=== PATIENT | female | born 1965 | race Caucasian/White ===

== ENCOUNTER 2017-10-25 08:29 | Outpatient (CLI) | payer OTHER | END 2017-10-25 08:39 | disposition home or self-care (01) | LOC: MAMO-SONO 08:29 | DX: N60.11 Diffuse cystic mastopathy of right breast (principal); N60.12 Diffuse cystic mastopathy of left breast ==

== ENCOUNTER → 2017-10-25 12:11 | Outpatient (CLI) | payer OTHER | END | disposition home or self-care (01) | LOC: LAB 07:13 | DX: E67.3 Hypervitaminosis D (principal); Z12.11 Encounter for screening for malignant neoplasm of colon; E03.8 Other specified hypothyroidism; E11.69 Type 2 diabetes mellitus with other specified complication; E78.2 Mixed hyperlipidemia ==

== ENCOUNTER 2018-12-05 08:13 | Outpatient (CLI) | payer OTHER | END 2018-12-05 09:51 | disposition home or self-care (01) | LOC: LAB 08:13 | DX: E11.9 Type 2 diabetes mellitus without complications (principal); E78.2 Mixed hyperlipidemia; E03.8 Other specified hypothyroidism; Z12.11 Encounter for screening for malignant neoplasm of colon ==

== ENCOUNTER 2018-12-05 08:14 | Outpatient (CLI) | payer OTHER | END 2018-12-05 08:28 | disposition home or self-care (01) | LOC: MAMO-SONO 08:14 | DX: N63.11 Unspecified lump in the right breast, upper outer quadrant (principal); Z12.31 Encounter for screening mammogram for malignant neoplasm of breast ==

== ENCOUNTER 2020-06-03 09:02 | Outpatient (CLI) | payer OTHER | END 2020-06-03 09:19 | disposition home or self-care (01) | LOC: MAMO-SONO 09:02 | PROVIDERS: ATTEND Internal Medicine | DX: Z12.31 Encounter for screening mammogram for malignant neoplasm of breast (principal); N63.11 Unspecified lump in the right breast, upper outer quadrant; N63.12 Unspecified lump in the right breast, upper inner quadrant; I11.9 Hypertensive heart disease without heart failure ==

== ENCOUNTER 2021-09-30 08:23 | Outpatient (CLI) | payer OTHER | END 2021-09-30 09:25 | disposition home or self-care (01) | LOC: RAD 08:23 | PROVIDERS: ATTEND Internal Medicine | DX: R92.1 Mammographic calcification found on diagnostic imaging of breast (principal); Z12.31 Encounter for screening mammogram for malignant neoplasm of breast; N60.12 Diffuse cystic mastopathy of left breast; I13.10 Hypertensive heart and chronic kidney disease without heart failure, with stage 1 through stage 4 chronic kidney disease, or unspecified chronic kidney disease ==